=== PATIENT | female | born 1965 | race Two or more races ===

== ENCOUNTER 2024-06-10 08:23 | Inpatient (IN) | payer OTHER, MEDICAID ==
[~2024-06-10] VITALS: Ht 170.2 cm; Wt 42.3 kg
[~2024-06-10 08:23] MED LIST: ALEN70TA74 PO; CALC-518 PO; CARV3.1240 PO; CHOL100047 PO; GABA400C PO; LURA40TA2 PO; OXYC325T14 PO; TRAZ-228 PO
--- NOTE | 2024-06-10 12:28 | DVHHP2 ---
History of Present Illness HPI pleasant lady admitted for elective lumbar spine surgery. 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 Home Meds Reported Medications Cholecalciferol (D3) 1,000 Unit Cap, 1000 UNIT PO DAILY, CAP 06/06/24 Alendronate Sodium (Alendronate Sodium) 70 Mg Tab, 70 MG PO Q7D, TAB 06/06/24 Calcium Carbonate (Calcium 600) 600 Mg Tab, 600 MG PO DAILY, TAB 06/06/24 Oxycodone W/ Acetaminophen (Apap/Oxycodone) 1 Tab Tab, 1 TAB PO QID, TAB 06/06/24 Gabapentin (Neurontin) 400 Mg Cap, 400 MG PO QID, CAP 06/06/24 Lurasidone Hydrochloride (LATUDA) 40 Mg Tab, 40 MG PO DAILY, TAB 06/06/24 Trazodone Hcl (Trazodone Hcl) 100 Mg Tab, 100 MG PO HS, TAB 06/06/24 Carvedilol (Carvedilol) 3.125 Mg Tab, 3.125 MG PO BID, TAB 06/06/24 Timing/Duration of Back Pain: Changing over time Quality of Back Pain: Aching, Burning, Cramping, Sharpness Review of Systems Constitutional: No symptom reported Ears, Nose, & Throat: No symptom reported Eyes: No symptom reported Pulmonary/Respiratory: No symptom reported Cardiovascular: No symptom reported Gastrointestinal: No symptom reported Genitourinary: No symptom reported Musculoskeletal: Leg pain, Muscle stiffness, Muscle atrophy Skin: No symptom reported Psychiatric: No symptom reported Endocrine: No symptom reported Hemotologic/Lymphatic: No symptom reported H&P Exam Vital Signs Vital Signs Date Time Temp Pulse Resp B/P (MAP) Pulse Ox O2 Delivery O2 Flow Rate FiO2 06/10/24 08:45 99.3 89 16 187/118 (141) 96 99.3 General Appeara: Well developed, Well nourished, Normal Appearance Head Exam: Normal inspection Neck Exam: Normal inspection, Non-tender, Normal alignment Eye Exam: bilateral eye Normal inspection, bilateral eye PERRL, bilateral eye EOMI Ear Exam: bilateral ear Auricle normal, bilateral ear Canal normal, bilateral ear TM normal Nasal Exam: Normal inspection Mouth: Normal Inspection Pulmonary/Respiratory: Normal inspection, Normal breath sounds, Chest non- tender, Lungs clear Cardiovascular/Chest: Normal inspection, Regular rate, Normal Rhythm Abdominal Exam: Normal bowel sounds, Soft, No tenderness, No hepatospenomegaly, No masses Rectal Exam: Deferred Back Exam: Decreased range of motion, Muscle spasm, Vertebral tenderness Pelvic Exam: Not done Male Genital Exam: Not done Shoulder Exam: Normal inspection, Non-tender, Normal ROM Elbow/Forearm Exam: Normal inspection, Non-tender, Normal ROM Hip exam: Normal inspection, Non-tender, Normal range of motion Legs: bilateral leg soft tissue tenderness Knees: bilateral knee soft tissue tenderness Ankle Exam: bilateral ankle Soft tissue tenderness Foot: bilateral foot soft tissue tenderness Tendon/ Neuro: Motor deficit, Sensory deficit LOB[employer]ER Exam: Normal hearing, Normal speech, PERRL Motor/Sensory: Weak motor strength RLE, Weak motor strength LLE DTR Exam: 0 Ankle (R), 0 Ankle (L); 1+ Tricep (L), 1+ Knee (L); 2+ All Intact, 2+ Bicep (R), 2+ Bicep (L), 2+ Tricep (R) Neuro/Mental St: Alert, Oriented Appearance: Appropriate appearance, Appropriate insight Eye contact/ Speech: Cooperative, Good eye contact, Normal speech Coordination/Gait: Abnormal gait Skin Exam: Normal inspection, Normal color, Warm/dry, Cyanosis Lymphatic: Normal inspection Assessment/Plan Plan discussed with: Patient JACKSON GAINES MD Jun 10, 2024 12:28
[2024-06-10] MEDS: ceFAZolin 2 GM/D5W100ml 100 ML IV ONE (12:51)
[2024-06-10] MEDS ORDERED: MORPHINE SULFATE INJ 2 MG/ml SYRG IV PRN (13:45)
[2024-06-10] MEDS ORDERED: NITROGLYCERIN 0.4 MG SL TAB SL PRN (13:45)
[2024-06-10] MEDS: D5W/SOD CHLO 0.9% 1,000 ML IV SCH (13:45)
[2024-06-10] MEDS ORDERED: ACETAMINOPHEN 325 MG TAB PO PRN (13:45)
[2024-06-10] MEDS ORDERED: ONDANSETRON HCL 4 MG/2 ML VIAL IV PRN (13:45)
[2024-06-10] MEDS: CYCLOBENZAPRINE HCL 10 MG TAB PO SCH (14:00)
[2024-06-10] MEDS: ceFAZolin 1GM/50ML 50 ML IV SCH (14:00)
[2024-06-10] MEDS: LIDOCAINE W/ EPINEPHRINE 1% 20ML VIAL ONE (14:10)
[2024-06-10] MEDS ORDERED: fentaNYL CITRATE 100 MCG/2 ML VL ONE (14:14)
[2024-06-10] MEDS: TRANEXAMIC ACID 20 ML ONE (14:19)
[2024-06-10] MEDS ORDERED: SUGAMMADEX 200mg/2ml Vial (100MG/ML) IV ONE (14:47)
[2024-06-10] MEDS ORDERED: ONDANSETRON HCL 4 MG/2 ML VIAL ONE ×2 (14:57→15:16)
[2024-06-10] MEDS ORDERED: KETOROLAC TROMETH 30 MG/ML 1ML VIAL ONE (14:57)
[2024-06-10] MEDS ORDERED: DexAMETHasone SOD PHOS 10MG/1ML VIAL INJ ONE (14:57)
[2024-06-10] MEDS ORDERED: MORPHINE SULF PF 5 MG/10 ML VIAL ONE (15:14)
[2024-06-10 16:05] VITALS: PULSE 86; RESP 12; O2SAT 100
[2024-06-10] MEDS: ACETAMINOPHEN IV 100 ML IV ONE (16:25)
[2024-06-10] MEDS: ACETAMINOPHEN IV 1000 MG/100ML (10MG/ML) IV ONE (16:30)
[2024-06-10] MEDS: HYDROmorphone HCL 2 MG/ML VL/or syr ONE (16:44)
[2024-06-10] MEDS ORDERED: hydrALAZINE HCL 20 MG/ML VL IV PRN (16:45)
[2024-06-10] MEDS ORDERED: ePHEDrine SULFATE 50 MG/ML AMP IV PRN (16:45)
[2024-06-10] MEDS ORDERED: MIDAZOLAM HCL 2MG/2ML 2ml VIAL (1mg/ml) IV PRN (16:45)
[2024-06-10] MEDS ORDERED: MORPHINE SULFATE 4 MG/ML SYR/VIAL IV PRN (16:45)
[2024-06-10] MEDS: ONDANSETRON HCL 4 MG/2 ML VIAL IV ONE (16:45)
[2024-06-10] MEDS: HYDROmorphone HCL 2 MG/ML VL/or syr IV PRN (16:45)
--- NOTE | 2024-06-10 17:05 | DVH ---
C-ARM FLUOROSCOPY: PROCEDURE: L2-L3 fusion FLUOROSCOPY TIME: 56 seconds DAP: 8.85 mgy FINDINGS: Spot intraoperative C arm radiographs demonstrating lumbar fusion. IMPRESSION: Please refer to surgical report for detailed findings.
[2024-06-10 17:32] VITALS: BP 150/91; PULSE 95; RESP 20; TEMP 97.6; O2SAT 97
[2024-06-10] MEDS: GABAPENTIN 400 MG CAP PO SCH (19:39)
[2024-06-10] MEDS: MORPHINE SULFATE INJ 2 MG/ml SYRG IV PRN (19:40)
[2024-06-10 20:00] VITALS: PULSE 79; PULSE 91; RESP 20; O2SAT 96
[2024-06-10 21:00] VITALS: BP 24/77; PULSE 79; RESP 20; TEMP 97.9; O2SAT 96
[2024-06-10] MEDS: traZODone HCL 50 MG TAB PO SCH (21:01)
[2024-06-10] MEDS: DOCUSATE SOD 100 MG CAP PO SCH (21:01)
[2024-06-10] MEDS: CARVEDILOL 3.125 MG TAB PO SCH (21:03)
[2024-06-10] MEDS ORDERED: PATIENTS OWN MEDICATION (Trazodone Hcl 100 MG) PO SCH (22:00)
[2024-06-11] VITALS (9 sets, daily range): BP systolic 106–165; BP diastolic 71–87; PULSE 72–87; RESP 12–22; TEMP 97.6–98.3; O2SAT 91–99
--- NOTE | 2024-06-11 12:56 | DVHPN2 ---
Progress Note - Surgical Date Seen: Jun 11, 2024 Post op day Post op day: 1 Subjective Patient reports: No new complaints Review of Systems: HEENT:Normal, CVS:Normal, RESPIRATORY:Normal, GI:Normal, :Normal, MSK:Normal, NEURO:Normal Objective Vital signs Vital Sign Date Time Temp Pulse Resp B/P (MAP) Pulse Ox O2 Delivery O2 Flow Rate FiO2 06/11/24 11:58 97.8 78 18 165/87 (113) 98 97.8 06/11/24 08:00 Nasal Cannula* 2 28 Total Intake and Output 06/10/24 06/10/24 06/11/24 15:00 23:00 07:00 Intake Total 110 ml 50 ml 1250 ml Output Total 500 ml Balance 110 ml 50 ml 750 ml Medications Current Medications Medications Dose Ordered Sig/Fernando Route Start Time Stop Time Status Last Admin Dose Admin Dextrose/Sodium Chloride 1,000 ml @ 100 mls/hr Q10H IV 06/10/24 13:45 06/11/24 09:19 100 MLS/HR Ondansetron HCl 4 mg Q4HP PRN IV 06/10/24 13:45 Acetaminophen 650 mg Q6HP PRN PO 06/10/24 13:45 Acetaminophen/ Hydrocodone Bitart 1 tab Q6HP PRN PO 06/10/24 13:45 Morphine Sulfate 1 mg Q4HP PRN IV 06/10/24 13:45 06/11/24 09:16 1 MG Cyclobenzaprine HCl 10 mg TID PO 06/10/24 14:00 06/11/24 05:37 10 MG Docusate Sodium 100 mg BID PO 06/10/24 22:00 06/11/24 09:16 100 MG Cefazolin Sodium 50 ml @ 100 mls/hr Q8HR IV 06/10/24 14:00 06/11/24 05:37 100 MLS/HR Nitroglycerin 0.4 mg Q5MINP PRN SL 06/10/24 13:45 Morphine Sulfate 2 mg Q30M PRN IV 06/10/24 13:45 Carvedilol 3.125 mg BID PO 06/10/24 22:00 06/11/24 09:16 3.125 MG Gabapentin 400 mg QID PO 06/10/24 18:00 06/11/24 09:16 400 MG Patient Own Medication 100 mg HS PO 06/10/24 22:00 UNV Trazodone HCl 100 mg HS PO 06/10/24 22:00 06/10/24 21:01 100 MG Examination: GENERAL:Normal, HEENT:Normal, NECK:Normal, LUNGS:Normal, CVS:Normal, ABDOMEN:Normal, MSK:Normal, SKIN:Abnormal (Significant ecchymosis noted to left wrist hand and arm bicep,), NEURO:Normal, :Normal Problem List/Assessment/Plan Problems: (1) Muscle spasm of back (2) Postoperative pain after spinal surgery Assessment and Plan Patient is progressing well postoperatively She is able to get up and ambulate in the hallways Patient is eating well voiding freely passing gas. Patient states her pain is under control and she is not reporting any muscle spasms Patient is progressing to discharge Drain output was 50 mL since surgery, we will leave it in one more day reassess tomorrow with the potential for discharge Call with questions Renzo Flowers [facility] Orthopaedic Spine Surgery nurse practitioner For Dr Pedro Gutiérrez Patient was examined, chart reviewed, labs evaluated, and diagnostic studies and findings analyzed. Case was discussed with Dr. Jostin Gutiérrez who formulated the plan of care. This medical document was created using an electronic medical record system with [employer] computerized dictation system. Although this document has been carefully reviewed, there might still be some phonetic and typographical errors. These areas are purely typographical due to imperfections of the software programs, and do not reflect any compromise in the patient's medical care. My Orders My Orders Orders - ASHLEY FLOWERS NP Procedure Category Date Status Time Drain To Suction JIE 06/11/24 In Process Drain Assessment JIE 06/11/24 In Process Plan discussed with Plan discussed with: Patient, Other (Nafisa extension [phone]) Visit Coding Surgery Date of Service if different f: Jun 11, 2024 Billing Provider: ASHLEY FLOWERS NP Surgery Visit Codes: NOT BILLABLE ASHLEY FLOWERS NP Jun 11, 2024 12:56
[2024-06-11] MEDS: HYDROcodone-ACET 10/325MG TAB PO PRN (13:04)
[2024-06-12] VITALS (9 sets, daily range): BP systolic 105–170; BP diastolic 79–107; PULSE 72–131; RESP 14–18; TEMP 97.7–98.5; O2SAT 92–98
[2024-06-12] MEDS: hydrALAZINE HCL 20 MG/ML VL IV ONE ×2 (12:25→17:41)
--- NOTE | 2024-06-12 19:10 | DVHPN2 ---
Progress Note - Surgical Date Seen: Jun 12, 2024 Post op day Post op day: 2 Subjective Patient reports: No new complaints Review of Systems: HEENT:Normal, CVS:Abnormal (Patient has been experiencing bouts of hypertension, patient is started on her home anti-hypertensive medication, two doses of hydralazine 5 mg given IV push. PT BP at 20:00 was 112/78), GI:Normal, :Normal, MSK:Normal, NEURO:Normal Objective Vital signs Vital Sign Date Time Temp Pulse Resp B/P (MAP) Pulse Ox O2 Delivery O2 Flow Rate FiO2 06/12/24 17:41 177/107 06/12/24 17:00 97.8 91 16 98 97.8 06/12/24 08:00 Room Air* 0 21 Total Intake and Output 06/11/24 06/11/24 06/12/24 15:00 23:00 07:00 Intake Total 2116 ml 950 ml Output Total 50 ml 25 ml Balance 2066 ml 925 ml Medications Current Medications Medications Dose Ordered Sig/Fernando Route Start Time Stop Time Status Last Admin Dose Admin Dextrose/Sodium Chloride 1,000 ml @ 100 mls/hr Q10H IV 06/10/24 13:45 06/12/24 15:53 100 MLS/HR Ondansetron HCl 4 mg Q4HP PRN IV 06/10/24 13:45 Acetaminophen 650 mg Q6HP PRN PO 06/10/24 13:45 Acetaminophen/ Hydrocodone Bitart 1 tab Q6HP PRN PO 06/10/24 13:45 06/12/24 14:08 1 TAB Morphine Sulfate 1 mg Q4HP PRN IV 06/10/24 13:45 06/11/24 09:16 1 MG Cyclobenzaprine HCl 10 mg TID PO 06/10/24 14:00 06/12/24 14:08 10 MG Docusate Sodium 100 mg BID PO 06/10/24 22:00 06/12/24 09:07 100 MG Cefazolin Sodium 50 ml @ 100 mls/hr Q8HR IV 06/10/24 14:00 06/12/24 14:08 100 MLS/HR Nitroglycerin 0.4 mg Q5MINP PRN SL 06/10/24 13:45 Morphine Sulfate 2 mg Q30M PRN IV 06/10/24 13:45 Carvedilol 3.125 mg BID PO 06/10/24 22:00 06/12/24 09:07 3.125 MG Gabapentin 400 mg QID PO 06/10/24 18:00 06/12/24 17:33 400 MG Patient Own Medication 100 mg HS PO 06/10/24 22:00 UNV Trazodone HCl 100 mg HS PO 06/10/24 22:00 06/11/24 21:42 100 MG Examination: GENERAL:Normal, HEENT:Normal, NECK:Normal, LUNGS:Normal, CVS:Normal, ABDOMEN:Normal, MSK:Normal, SKIN:Normal (Kateryna dressing intact and functioning well drain output recorded as 25 mL), NEURO:Normal, :Normal Problem List/Assessment/Plan Problems: (1) Muscle spasm of back (2) Postoperative pain after spinal surgery Assessment and Plan Patient is progressing well postoperatively Will discharge tomorrow She continues to be able to get up and ambulate in the hallways Patient is eating well voiding freely passing gas. Patient states her pain is under control and she is not reporting any muscle spasms Patient is progressing to discharge Drain output was 25 mL since surgery, drain will be discontinued Call with questions Renzo Flowers [facility] Orthopaedic Spine Surgery nurse practitioner For Dr Pedro Gutiérrez Patient was examined, chart reviewed, labs evaluated, and diagnostic studies and findings analyzed. Case was discussed with Dr. Jostin Gutiérrez who formulated the plan of care. This medical document was created using an electronic medical record system with [employer] dictation system. Although this document has been carefully reviewed, there might still be some phonetic and typographical errors. These areas are purely typographical due to imperfections of the software programs, and do not reflect any compromise in the patient's medical care. Plan discussed with Plan discussed with: Patient, Other (Eloisa RN x [phone]) Visit Coding Surgery Date of Service if different f: Jun 12, 2024 Billing Provider: ASHLEY FLOWERS NP Surgery Visit Codes: NOT BILLABLE ASHLEY FLOWERS NP Jun 12, 2024 19:09
[2024-06-13 01:00] VITALS: BP 142/81; PULSE 116; RESP 16; TEMP 98.4; O2SAT 95
[2024-06-13 05:00] VITALS: BP 113/79; PULSE 98; RESP 16; TEMP 98.5; O2SAT 94
[2024-06-13 08:00] VITALS: PULSE 106; PULSE 108; PULSE 97; RESP 18; RESP 19; O2SAT 95; O2SAT 96
--- NOTE | 2024-06-13 09:07 | DVHDS2 ---
ASSESSMENT ASSESSMENT Hospital Course Continue supportive care, postoperative treatment, pain management and wound dressing Patient may be discharged from a spine surgical perspective Patient will be discharged with samuel dressing in place, this will be removed at postop follow-up appointment which should be scheduled by postoperative day 10 Your samuel dressing may be carried in your pocket or belt clip what ever is most comfortable for you. Your samuel pump contains a small magnet be sure to keep it at least 4 inches or 10 cm away from any other medical devices at all times. As with all electrical medical equipment, failure to maintain appropriate distance may disrupt the operation of nearby medical devices. Sleeping, be sure your samuel drain is placed somewhere safe and cannot be pulled off of the table or a cabinet onto the floor during sleeping. Washing and showering, do not soak the dressing or allow the pump to get wet. You may shower with your samuel dressing. However do not allow the water to saturate the dressing. The power source must be placed in a Ziploc bag and the opening taped closed to prevent the power source from getting wet No bending lifting or twisting until cleared by your surgeon. Follow-up with Dr. Luna ideally by postoperative day 10, limited by clinic schedule Call for an appointment [phone] [id number] [facility] [address] [place], [place] [id number] Assessment Acute postoperative pain related to lumbar surgery. Treated for lumbar stenosis Problems: (1) Muscle spasm of back Assessments: Continue taking Flexeril 10 mg every 8 hours (2) Postoperative pain after spinal surgery Assessments: Continue taking oral analgesics as needed ASHLEY SHANNON NP Jun 13, 2024 09:07
[2024-06-13] MEDS ORDERED: CYCL-611 PO (09:10)
[2024-06-13] MEDS ORDERED: DOCU-265 PO (09:10)
[2024-06-13] MEDS ORDERED: HYDR-4798 PO (09:10)
--- NOTE | 2024-06-13 09:22 | DVHDS2 ---
Discharge Summary Date of Admission Jun 10, 2024 at 13:33 Date of Discharge: Jun 13, 2024 Admitting Diagnosis Lumbar stenosis Wounds: Lumbar incision covered with samuel dressing which is intact, power source is functioning and seal has been maintained. Samuel dressing will stay on until patient sees Dr. Tyler in the office for her 1st postop appointment Labs/Diagnostic Data: Intraoperative fluoroscopy determined to have adequate construct placement Brief Hx & Hospital Course: Continue supportive care, postoperative treatment, pain management and wound dressing Patient may be discharged from a spine surgical perspective Patient will be discharged with samuel dressing in place, this will be removed at postop follow-up appointment which should be scheduled by postoperative day 10 Your samuel dressing may be carried in your pocket or belt clip what ever is most comfortable for you. Your samuel pump contains a small magnet be sure to keep it at least 4 inches or 10 cm away from any other medical devices at all times. As with all electrical medical equipment, failure to maintain appropriate distance may disrupt the operation of nearby medical devices. Sleeping, be sure your samuel drain is placed somewhere safe and cannot be pulled off of the table or a cabinet onto the floor during sleeping. Washing and showering, do not soak the dressing or allow the pump to get wet. You may shower with your samuel dressing. However do not allow the water to saturate the dressing. The power source must be placed in a Ziploc bag and the opening taped closed to prevent the power source from getting wet No bending lifting or twisting until cleared by your surgeon. Follow-up with Dr. Luna ideally by postoperative day 10, limited by clinic schedule Call for an appointment [phone] [id number] [facility] [address] [place] [address] Consults/Reason for consult Elective surgery for lumbar spine Operations or Procedures Lumbar 2-3 posterior spinal decompression with L2-3 posterior spinal fusion and removal of deep spinal hardware with bone graft and instrumentation Condition at Discharge: Good Final Diagnosis/Problems List Postoperative pain status post lumbar spine surgery to correct lumbar stenosis. Continue taking oral analgesics as needed Discharge Disposition: Home Discharge Instruct/Medications Diet: Regular Diet comment: Patient may resume a regular diet Activity: Light activity Activity comment: No bending twisting or lifting more than 5 lb until released by Dr. Luna Follow Up/Referral: Call [phone] for a appointment or keep your prescheduled appointment [id number] [address] [facility], [address], [place] [id number] New Medications: Cyclobenzaprine HCl (Cyclobenzaprine Hydrochlo) 10 Mg Tab 10 MG PO TID for 30 Days, #90 TAB Docusate Sodium (Docusate Sodium) 100 Mg Cap 100 MG PO BID for 30 Days, #60 CAP Hydrocodone-Acetaminophen (Hydrocodone Bitartrate/AC 10-325 mg) 1 Tab Tab 1 TAB PO Q6HP PRN for 10 Days, #40 TAB Continued Medications: Alendronate Sodium (Alendronate Sodium) 70 Mg Tab 70 MG PO Q7D, TAB Calcium Carbonate (Calcium 600) 600 Mg Tab 600 MG PO DAILY, TAB Carvedilol (Carvedilol) 3.125 Mg Tab 3.125 MG PO BID, TAB Cholecalciferol (D3) 1,000 Unit Cap 1000 UNIT PO DAILY, CAP Gabapentin (Neurontin) 400 Mg Cap 400 MG PO QID, CAP Lurasidone Hydrochloride (Latuda) 40 Mg Tab 40 MG PO DAILY, TAB Oxycodone W/ Acetaminophen (Apap/Oxycodone) 1 Tab Tab 1 TAB PO QID, TAB Trazodone Hcl (Trazodone Hcl) 100 Mg Tab 100 MG PO HS, TAB Discharge Statement: "Patient was advised to return to the ER or call 911 if any headaches, dizziness, shortness of breath, chest pain, abdominal pain, bleeding, fevers, or worsening of medical condition. Patient was counseled about treatment plan, medications, possible side effects, patientverbalized understanding. All questions were answered to the best of my ability. This discharge took greater then 30 minutes in planning, reviewing documentation, counseling the patient, and discussing with other team members." ASSESSMENT ASSESSMENT Hospital Course Continue supportive care, postoperative treatment, pain management and wound dressing Patient may be discharged from a spine surgical perspective Patient will be discharged with samuel dressing in place, this will be removed at postop follow-up appointment which should be scheduled by postoperative day 10 Your samuel dressing may be carried in your pocket or belt clip what ever is most comfortable for you. Your samuel pump contains a small magnet be sure to keep it at least 4 inches or 10 cm away from any other medical devices at all times. As with all electrical medical equipment, failure to maintain appropriate dis tance may disrupt the operation of nearby medical devices. Sleeping, be sure your samuel drain is placed somewhere safe and cannot be pulled off of the table or a cabinet onto the floor during sleeping. Washing and showering, do not soak the dressing or allow the pump to get wet. You may shower with your samuel dressing. However do not allow the water to saturate the dressing. The power source must be placed in a Ziploc bag and the opening taped closed to prevent the power source from getting wet No bending lifting or twisting until cleared by your surgeon. Follow-up with Dr. Luna ideally by postoperative day 10, limited by clinic schedule Call for an appointment [phone] [address] Assessment Continue taking oral analgesics as needed Problems: (1) Muscle spasm of back Assessments: Continue taking Flexeril 10 mg every 8 hours (2) Postoperative pain after spinal surgery Assessments: Continue taking oral analgesics as needed ASHLEY SHANNON NP Jun 13, 2024 09:22
[2024-06-13 09:40] VITALS: BP 105/79; PULSE 110; RESP 18; TEMP 36.9; O2SAT 95
--- NOTE | 2024-06-18 22:25 | DVHOP2 ---
Operative Report - 2 Report Details Date: 06/10/24 Preop Diagnosis: post laminectomy syndrome lumbar spine Postop Diagnosis: same as pre op Surgeon: Jostin Gutiérrez MD Jig Builder: Poonam naidu NP Anesthesiologist: richard Anesthesia: General Consent: The patient was informed of the risks and benefits of the procedure. These include but are not limited to complications of anesthesia, postoperative infection, incomplete relief of symptoms, recurrence of symptoms, damage to blood vessels, nerves and tendons, deep venous thrombosis, pulmonary embolism an d possible need for repeat surgery in the future. Name of Procedure Performed see detailed note Procedure Details Procedure Details: Pre-op Diagnosis: 1. Post laminectomy syndrome lumbar spine 2. Lumbar spinal stenosis with incapacitating radiculopathy Post-op Diagnosis: same as pre op Procedure: 1. Revision lumbar 4 laminotomies/foraminotomies/facetectomies to decompress central canal and lumbar 4 nerve roots bilaterally 2. Revision lumbar 3 laminotomies, foraminotomies/facetectomies to decompress central canal and lumbar 3 nerve roots bilaterally 3. Revision lumbar 2 laminotomies foraminotomies and facetectomies to decompress central canal and bilateral lumbar 2 nerve roots 4. Revision lumbar 1 laminotomies foraminotomies and facetectomies to decompress central canal and bilateral lumbar 1 nerve roots 5. Lumbar 2 to 3 posterior spinal intertransverse fusion with bone graft 6. Lumbar 2 to 3 posterior spinal instrumentation with pedicle screws 7. Autograft bone for fusion 8. Allograft bone Bacteria to augment fusion 9. De-mineralized bone matrix to augment fusion 10. Microscope for micro dissection 11. Removal of deep retained spinal hardware lumbar spine (removal of pedicle screw construct) Surgeon: Dr. Gutiérrez Assist: Poonam REDDING Anesthesia: General Fluids and EBL: See anesthesia note Patient was seen in the Pre Anesthesia Care Unit (PACU) and the operative site was initialed by me. All questions were answered to the patients satisfaction and chart reviewed. The patient was taken to the operative room where pre- operative antibiotics were given 30 minutes prior to incision. General anesthesia was induced and neuro-monitoring leads placed. Lares catheter was placed. The patient was turned prone onto the [facility] spinal table. While positioning, I made sure that the belly was free to allow proper expansion of the lungs. The hips were extended and all bony prominences padded. The shoulders were abducted 80 degree and the elbows flexed 100 degrees with no tension on the brachial plexus. I check the foot arterial pulses and they were palpable. The old surgical scar was marked with a marker prior to prepping and draping. The patient was prepped and draped and time out was taken at this time per usual protocol. At this time, the C-arm fluoroscope was brought in and was used to estevan the incision borders proximally and distally. Using a Number 10 Blade, an incision was made extending it proximally and distally per C arm estevan from the posterior spinous process of lumbar 3 down to lumbar 5 , down to the lumbo-dorsal fascia. All bleeding was controlled with electrocautery. Self- retaining retractors were placed. Electrocautery was then used to take down the lumbo-dorsal fascia, to free the muscle off the bone bilaterally where the tissue was virgin. A Josef retractor was placed over the posterior spinous process proximally and a lateral C-arm fluoroscope image was taken to insure we were at the correct level. Next, dissection through the prior surgical site was started at virgin tissue and the deep back muscles were taken down as deep as possible while avoiding getting too close to the dura and avoiding being too shallow to cause nerve injury and bleeding. Next, using bovie electro cautery, The deep fascia laterally to the facet joints was removed to expose the remnants of the laminectomies at Lumbar 1,2,3, and 4 while taking care to avoid injuring the facet capsule at the proximal end of the incision. Next, the microscope was bought in for visualization and using a Luxell rongeur, the remnants of the inferior and superior articular facets at the above described levels was saved for use as local autograft. I used alternating Kerison 2 mm and 3 mm rongeurs to perform revision laminotomies/foraminotomies and facetectomies of the remnants of the laminae at Lumbar 1,2,3,4 to revise the decompression of the central canal and lateral recesses and foramen to decompress the bilateral lumbar 1,2,3 and 4 nerve roots and central canal. Next using alternating Kerison 2mm and 3 mm rongeurs, the superior articular facets of lumbar 1,2,3 and 4 were removed bilaterally at the virgin dissection to decompress the lateral recess (facetectomies) and then extended proximally to decompress the foramen bilaterally (foraminotomies). Next , carefully, straight and curved curettes were used to free up the dura from residual lamina left from the prior surgeries and kerison 2mm and 3 mm rongeurs removed the remaining lamina (revision laminotomies). Essentially this step was used to perform a neurolysis of the the adhered sections of the dura in the operative levels where it was scarred down to the bone laterally on the right and left sides. Next, the 2mm and 3mm Kerison rongeurs undercut the superarticular facets and widened the foramina in the manner described above for the4 and 5 levels. I used a ball tipped nerve probed to insure that the respective nerve roots were able to be mobilized 5mm in each direction were unimpeded in the lateral recess and foramen. Next I carefully inspected the dura to make sure no durotomy was visible and it was not. Next, focus was given to the present L1-2 pedicle screw construct. It was removed without difficulty with the universal pedicle screw removal set. I covered the exposed dura with gelfoam soaked in thrombin and the microscope was wheeled away from the operative filed. The C-arm fluoroscope was brought in I replaced the pedicle screws at the L2 level bilaterally by placing 6.5 X45mm screws and then placed new screws at L3 which were also 6.5X45mm bilaterally. Next, the c-arm fluoroscope took an AP and lateral x-ray to ensure proper placement of the pedicle screws. Next, the neuro-stimulation probe was placed over the tip of each screw and each screw stimulated only after a current greater than 10 mA was delivered to the screw. Next , I took a Midas Bal Drill to decorticate the transverse process which were exposed and local bone graft, Bacterin allograft bone substitute and Demineralized bone matrix were placed along the inter transverse process intervals bilaterally (the fusion bed). Next a curved bogdan sized to fit the pedicle screw interval was placed and secured to each pedicle screw using set screws, The set screws were tighten using a torque screwdriver (set to 10 N*M torque) to secure the bogdan to the pedicle screws bilaterally. Final AP and lateral C arm fluoroscopic films were taken at this time. Next a 10 [place] diameter Hemovac drain was laced deep to the lumbo- dorsal fascia. The lumbo-dorsal fascia was closed with interrupted 0-Vicryl sutures. The subcutaneous tissue was closed with interrupted 2-0 Vicryl sutures. The skin was closed with 2-0 nylon subcuticular suture. Sterile dressings were place. The pt. was turned supine onto the stretcher, extubated and taken to the recovery room in stable condition. Additional Notes: [employer] SPINE INSTRUMENTATION Condition Stable Disposition Still a Patient JOSTIN GUTIÉRREZ MD Jun 18, 2024 22:25
== END 2024-06-13 10:20 | disposition home health service (06) | DRG 402 ==
LOC: SUR 08:23 → TELE 13:33 → TELE-WESTW 17:50
PROVIDERS: ADMIT Hospitalist; ATTEND Hospitalist
PROC: 0SG0071 Fusion of Lumbar Vertebral Joint with Autologous Tissue Substitute, Posterior Approach, Posterior Column, Open Approach (ICD-10-PCS; 2024-06-10)
PROC: 01NB0ZZ Release Lumbar Nerve, Open Approach (ICD-10-PCS; 2024-06-10)
PROC: 00NY0ZZ Release Lumbar Spinal Cord, Open Approach (ICD-10-PCS; 2024-06-10)
PROC: 4A11X4G Monitoring of Peripheral Nervous Electrical Activity, Intraoperative, External Approach (ICD-10-PCS; 2024-06-10)
PROC: 0QP004Z Removal of Internal Fixation Device from Lumbar Vertebra, Open Approach (ICD-10-PCS; 2024-06-10)
PROC: 0SG007J Fusion of Lumbar Vertebral Joint with Autologous Tissue Substitute, Posterior Approach, Anterior Column, Open Approach (ICD-10-PCS; principal; 2024-06-10 13:15)
DX: M48.061 Spinal stenosis, lumbar region without neurogenic claudication (principal); M62.830 Muscle spasm of back; M96.1 Postlaminectomy syndrome, not elsewhere classified; M54.16 Radiculopathy, lumbar region
CPT/HCPCS: 72100; 76000; 86850; 86900; 86901; 97116; 97163; 97530; G0378; J0131; J1100; J1885; J2405; J7042